=== PATIENT | female | born 1945 | race Caucasian/White ===

== ENCOUNTER 2022-10-17 01:09 | Day surgery (SDC) | payer MEDICARE, SELFPAY ==
[2022-10-08 10:36] VITALS: BMI 41.3
--- NOTE | 2022-10-08 10:48 | PC.NURSE ---
PRE-OP INSTRUCTIONS, PLEASE READ CAREFULLY Report to the Outpatient Waiting Room, entrance under the green pavilion located off [facility], at time _0730_ on date _10/17/22_. Planned Procedure Time: _0930_. Time changes happen often and if your time is changed the preop area will call you the afternoon before. - You and your visitor will be asked to self-screen and do not enter if you have any COVID symptoms. - Only one visitor is requested with a max of two and NO children visitors are allowed at this time. - The patient visitor may be requested to leave or wait in car when not with patient due to distancing restrictions. - A mask is optional within the hospital. Patients may have clear liquids (water, carbonated beverages, clear teas, apple juice) until 3 hours prior to surgery (0630 AM) with a maximum of 20 ounces. - No food from midnight until time of surgery Take the following medications with a SIP of water the morning of surgery: _METOPROLOL, PREDNISONE, TRAMADOL IF NEEDED_ Medications to discontinue _IBUPROFEN PER DR. ALEMAN'S INSTRUCTIONS_ Please no make-up, nail persian, hairspray, perfume, deodorant, or body powder the day of surgery. No jewelry (including any body piercings) or valuables the day of surgery, leave them at home. Please take a shower or bath the night before, or the morning of, surgery with an antibacterial soap. Wear comfortable, loose fitting clothing. - Jewelry must be removed prior to entering the operating room. Rings and piercings that are not removed may be cut off. - The hospital will not accept responsibility for valuables. - Please leave all valuables, including medications, at home the day of surgery. If you are going home after surgery, a licensed screw driver operator must drive you home. - NO public transportation without another adult if you receive anesthesia. - We recommend that an adult stay with you for 24 hours following discharge. - We also recommend that you do not drive, make important decision, drink alcoholic beverages, or take any drugs that were not prescribed by your health care provider for at least 24 hours after your discharge time. Follow any additional instructions given to you from your surgeon. If you or anyone in your household have experienced Covid symptoms in the past week, please notify your surgeon or the nurse liaison at the phone number below for possible testing. Telephone instructions given to _PATIENT_and asked if any additional questions and then verbalized understanding. Patient advised to call surgeon office or pre surgery nurse liaison [phone] if any additional questions.
--- NOTE | 2022-10-17 07:16 | WPDHPUPDATE1 ---
History and Physical Update Update Date/Time: 10/17/22 07:16 History and Physical has been reviewed, including an updated exam of the patient. There are NO changes in the patient's condition. Risks, benefits, and alternatives have been discussed and questions answered. Patient agrees to proceed with procedure.
--- NOTE | 2022-10-17 07:29 | PM.IMHP ---
H&P: HPI History of Present Illness Date/Time: 10/17/22 07:29 Chief Complaint: Incontinence Narrative: 77-year-old incontinence. History consistent with intrinsic sphincter deficiency. Confirmed on urodynamics Review of Systems Review of Systems: All systems reviewed & are unremarkable except as noted in HPI and below PMFSH Social History Social History Smoking status: Never smoker Tobacco type: cigarettes Alcohol intake: never Substance use: never Substance use type: does not use Living arrangements: alone Spiritual care concerns: No Meds Home Medications and Allergies Home Medications Medication Instructions Recorded Confirmed Type dextromethorphan HBr 5 mg/5 mL 10 mg PO Q6H PRN Congestion 10/08/22 10/08/22 History oral syrup ergocalciferol (vitamin D2) 1,250 1,250 mcg WEEKLY 10/08/22 10/08/22 History mcg (50,000 unit) capsule famotidine 20 mg tablet 20 mg BID 10/08/22 10/08/22 History furosemide 40 mg tablet (Lasix) 40 mg PO DAILY PRN SWELLING 10/08/22 10/08/22 History glipizide 2.5 mg-metformin 500 mg See Rx Instructions .Route .COMPLEX 10/08/22 10/08/22 History tablet ibuprofen 600 mg tablet 600 mg PO TID PRN Pain 10/08/22 10/08/22 History irbesartan 150 1 tablet DAILY 10/08/22 10/08/22 History mg-hydrochlorothiazide 12.5 mg tablet metoprolol succinate 50 mg 50 mg PO QAM 10/08/22 10/08/22 History tablet,extended release 24 hr mirabegron 50 mg tablet,extended 50 mg PO DAILY 10/08/22 10/08/22 History release 24 hr (Myrbetriq) montelukast 10 mg tablet 10 mg HS 10/08/22 10/08/22 History pantoprazole 40 mg tablet,delayed 40 mg PO HS 10/08/22 10/08/22 History release potassium chloride 10 mEq 10 meq PO DAILY 10/08/22 10/08/22 History tablet,extended release prednisone 20 mg tablet 20 mg QAM 10/08/22 10/08/22 History tramadol 50 mg tablet 50 mg Q6H PRN Pain 10/08/22 10/08/22 History Allergies Allergy/AdvReac Type Severity Reaction Status Date / Time aspirin AdvReac RAPID Verified 10/08/22 10:25 HEART RATE Exam Narrative: No acute distress No urethral mobility Alert oriented Assessment and Plan Assessment and plan (1) Intrinsic sphincter deficiency (ISD): Code(s): N36.42 - Intrinsic sphincter deficiency (ISD) Status: Acute Assessment and Plan: Cystoscopy with bulking agent. Understands risks of bleeding, infection, lack of efficacy, need for repeat procedures, urinary retention. Agrees to proceed
[2022-10-17 08:28] VITALS: BP 119/49; PULSE 76; RESP 20; TEMP 36.5; O2SAT 99
[2022-10-17 08:42] LABS: Anion Gap 13 mmol/L (8-16); Blood Urea Nitrogen 19 mg/dL (7-17); Calcium 9.2 mg/dL (8.4-10.2); Carbon Dioxide 25 mmol/L (22-30); Chloride 95 mmol/L (98-107); Estimated CRCL calculation 45 ml/min; Estimated Glomerular Filt Rate 48; Glucose 236 mg/dL (65-110); Potassium 3.7 mmol/L (3.4-5.0); Sodium 133 mmol/L (137-145)
--- NOTE | 2022-10-17 08:42 | WPDANESEPPF ---
Anes - Initial Pre Proc Eval Procedure: Operation Date: 10/17/22 09:15 Proposed Procedures p Cystoscopy with Injection Bulking Agent - Dell Banegas MD Date/Time: 10/17/22 08:42 Surgeon: Dell Banegas MD Pre Op Diagnosis: ID Patient Data Age: 77 Gender: F Height: 1.68 m Weight: 103 kg Last Vital Signs Temp 36.5 C 10/17/22 08:28 Pulse 76 10/17/22 08:28 Resp 20 10/17/22 08:28 BP 119/49 L 10/17/22 08:28 Pulse Ox 99 10/17/22 08:28 O2 Del Method Room Air 10/17/22 08:28 Allergies Allergy/AdvReac Type Severity Reaction Status Date / Time aspirin AdvReac RAPID Verified 10/17/22 07:55 HEART RATE Home Medications Medication Instructions Recorded Confirmed Type dextromethorphan HBr 5 mg/5 mL 10 mg PO Q6H PRN Congestion 10/08/22 10/08/22 History oral syrup ergocalciferol (vitamin D2) 1,250 1,250 mcg WEEKLY 10/08/22 10/08/22 History mcg (50,000 unit) capsule famotidine 20 mg tablet 20 mg BID 10/08/22 10/08/22 History furosemide 40 mg tablet (Lasix) 40 mg PO DAILY PRN SWELLING 10/08/22 10/08/22 History glipizide 2.5 mg-metformin 500 mg See Rx Instructions .Route .COMPLEX 10/08/22 10/08/22 History tablet ibuprofen 600 mg tablet 600 mg PO TID PRN Pain 10/08/22 10/08/22 History irbesartan 150 1 tablet DAILY 10/08/22 10/08/22 History mg-hydrochlorothiazide 12.5 mg tablet metoprolol succinate 50 mg 50 mg PO QAM 10/08/22 10/08/22 History tablet,extended release 24 hr mirabegron 50 mg tablet,extended 50 mg PO DAILY 10/08/22 10/08/22 History release 24 hr (Myrbetriq) montelukast 10 mg tablet 10 mg HS 10/08/22 10/08/22 History pantoprazole 40 mg tablet,delayed 40 mg PO HS 10/08/22 10/08/22 History release potassium chloride 10 mEq 10 meq PO DAILY 10/08/22 10/08/22 History tablet,extended release prednisone 20 mg tablet 20 mg QAM 10/08/22 10/08/22 History tramadol 50 mg tablet 50 mg Q6H PRN Pain 10/08/22 10/08/22 History Laboratory Tests 10/17/22 08:26 Sodium Pending Potassium Pending Chloride Pending Carbon Dioxide Pending Anion Gap Pending BUN Pending Creatinine Pending Estim Creat Clear Calc Pending Estimated GFR Pending Glucose Pending Calcium Pending Patient hx anesthesia problems: none Family hx anesthesia problems: none Results Review: All pre-operative results and documents have been reviewed as part of the pre-operative evaluation. [facility] Past Medical History Medical History (Updated 10/17/22 @ 08:43 by Juan Antonio Tran MD) Asthma HTN (hypertension) Obesity CARISA (obstructive sleep apnea) Social History Social History Smoking status: Never smoker Tobacco type: cigarettes Alcohol intake: never Substance use: never Substance use type: does not use Living arrangements: alone Spiritual care concerns: No Anes - Eval Final PreProcedure Day of Procedure 10/17/22 08:42 Patient weight: obese Heart: regular rate and rhythm Lungs: clear to auscultation Airway: Mallampati scale class II Neurological: alert and oriented Last oral intake: >/= 8 hours ASA classification: III Emergent: no Anesthetic plan: proceed Anesthesia type and monitoring: general GIVS and standard monitoring Results Review: All pre-operative results and documents have been reviewed as part of the pre-operative evaluation. Informed Consent: The patient's anesthetic plan and its attendant risks and benefits were discussed with the patient/family/POA. Questions were solicited and answers provided to the satisfaction of the patient/family/POA.
--- NOTE | 2022-10-17 08:50 | SUR.PREOP ---
Patient unable to void. Attempted strait cath unsuccessfully. Patient sore with milky vag discharge. Unable to hold position making job more difficult. OR notified.
[2022-10-17 09:10] LABS: Appearance Urine Cloudy (Clear); Bilirubin Urine Negative (Negative); Blood Urine Trace-lysed (Negative); Color Urine Yellow (Yellow); Glucose Urine UA 2+ mg/dL (Negative); Ketones Urine Trace mg/dL (Negative); Leukocyte Esterase Ur 2+ LEU/UL (Negative); Nitrate Urine Negative (Negative); Protein Urine Negative (Negative); Specific Grav Ur >= 1.030 (1.001-1.035); Urobilinogen Urine 0.2 mg/dL (<2.0)
[2022-10-17 09:17] LABS: Bacteria Urine 4+ /hpf; Mucus Urine Heavy /lpf; WBC Urine 51-75 /hpf
[2022-10-17 09:29] LABS: Add Urine Microscopic? YES
[2022-10-17] MEDS: ceFAZolin 2 GM/D5W 50 ML 2 GM/50 ML BAG IVPB (10:07)
[2022-10-17] MEDS: LIDOCAINE HCL 2% GEL UROJET 10 ML PKG MUCOUS MEM (10:22)
[2022-10-17 10:35] VITALS: BP 82/47; PULSE 88; RESP 12; O2SAT 99
[2022-10-17] MEDS: LACTATED RINGERS 1,000 ML 30 ML IV CONT (10:35)
--- NOTE | 2022-10-17 10:50 | W.PM.PROC2 ---
Procedure Note - Detailed Date of Procedure 10/17/22 Pre-op Diagnosis Intrinsic sphincter deficiency Post-op Diagnosis Same Procedure Performed This is a with urinary incontinence. Based on urodynamics it is apparently intrinsic sphincter deficiency. She presents for a bulking agent. She understands risks of bleeding, infection, incomplete efficacy, need for repeat procedures, urinary retention requiring a catheter. She also understands I am expecting improvement rather than cure of her urinary condition Surgeon Dell Banegas MD Anesthesia Regional and Local Findings Open urethra consistent with intrinsic sphincter deficiency. Trabeculated bladder Description of Procedure She was correctly identified. Informed consent obtained. She from the operating room. She was given MAC anesthesia. Urinalysis was done preoperatively. There are leukocytes but nitrite and blood negative. She was prepped and draped in a sterile fashion. Given appropriate perioperative antibiotics. A time-out performed. Examination revealed evidence of vaginal yeast infection. I applied Uro jet into the urethra. On cystoscopy she had trabeculated bladder. There is no erythema. Ureteral orifices were normal. There is no tumors. The urethra was open consistent with intrinsic sphincter deficiency. I chose a site 2 cm distal to bladder neck. I injected 1 syringe of bulking agent. I injected circumferentially coapted the urethra. I left the bladder partially full. She was awakened transferred to PACU in stable condition Estimated Blood Loss 1 Drains No Packing No Pathology None sent Complications No immediate complications Condition Stable Disposition PACU
[2022-10-17 11:00] LABS: Glucose Point of Care 188 mg/dl (65-105)
[2022-10-17 11:05] VITALS: BP 126/64; PULSE 80; RESP 18
[2022-10-17 11:35] VITALS: BP 137/42; PULSE 87; RESP 16
[2022-10-17 12:05] VITALS: BP 140/39; PULSE 85; RESP 16
[2022-10-17 12:35] VITALS: BP 125/50; PULSE 85; RESP 16
== END 2022-10-17 12:51 | disposition home or self-care (01) ==
PROVIDERS: Anesthesiology; PCP Internal Medicine; Visit Provider Urology
PROC: 3E0K8GC Introduction of Other Therapeutic Substance into Genitourinary Tract, Via Natural or Artificial Opening Endoscopic (ICD-10-PCS; CPT 51715; principal; 2022-10-17 09:15)
DX: N36.42 Intrinsic sphincter deficiency (ISD) (principal); N39.3 Stress incontinence (female) (male); N32.89 Other specified disorders of bladder; I10 Essential (primary) hypertension; J45.909 Unspecified asthma, uncomplicated; E66.9 Obesity, unspecified; Z68.36 Body mass index [BMI] 36.0-36.9, adult
CPT/HCPCS: 51715; 36415; 80048; 81001; 82948; 87086; 87088; A9270; J0690; J2704; J3010; J7120; L8606